=== PATIENT | male | born 1965 | race African-American/Black ===

== ENCOUNTER → 2017-01-30 | Day surgery (SDC) | payer BC, OTHER ==
[~2017-01-30] MED LIST: BACTRIM DS TABL1 TA2 PO; DICLOFENAC PO; LORTAB 5/500 TA1 TA1 PO; NO MEDICATIONS; NORFLEX100 M1 PO; TYLENOL #3 PO; VICODIN 5/1 TAB 5/50 PO; VOLTAREN75 MG PO; ZITHROMAX1 G/PKT PO
--- NOTE | ~2017-01-30 | OR ---
Unit #: [id number] #: [id number] Patient: PATRICIA WONG [id number] [address] [place], [place] [address] [id number] O MR#: [id number] NAME: PATRICIA WONG ROOM: Date of Procedure: 01/30/2017 Admission Date: 01/30/2017 Surgeon: Alex Platt Jr., M.D. : 1965 Attending Physician: Alex Platt Jr., M.D. Referring Physician: Alex Platt Jr., M.D. Primary Care Physician: Mohini King M.D. OPERATIVE REPORT INDICATION FOR PROCEDURE The patient is a 51-year-old black male, who recently presented to the office complaining of a nodular mass of the upper midline above the umbilicus. He has had a previous umbilical hernia. It was felt he had an incarcerated recurrent ventral incisional hernia. He is brought to the operating room at this time for laparoscopic repair of this. He understands the procedure including the risks, including that of intra-abdominal organ injury, bleeding, abscess formation, recurrence of the hernia and chronic pain, and consents. He also has several small condylomas of the penis that he wants removed and these will be removed at the end of the case. ANESTHESIA General with endotracheal intubation and 0.5% Marcaine with epinephrine locally. PROCEDURES PERFORMED Laparoscopic reduction and ventral hernia repair using a 6 x 8 inch Ventralight mesh along with SecureStrap and excision of 3 condylomas of the penis. DESCRIPTION OF PROCEDURE The patient was positioned in supine position. After being anesthetized and intubated, he was prepped and draped in routine fashion for laparoscopic ventral hernia repair and excision of his penile condylomas. A small 0.5 cm incision was made in the right lateral abdominal wall area and a 5-mm Optiview was introduced into the abdomen. The abdomen was then inflated with CO2 gas. Camera was introduced into the abdomen. There were multiple adhesions in the central portion of the omentum. No evidence of any bowel loops. An 11-mm port was placed in the right lower quadrant abdominal wall area and a 5-mm port in the left upper and left lower quadrant abdominal wall areas. Using the grasping clamp, the looser adhesions were pulled free. The rest were then taken down with the Endo Jean Claude using a current of 20. Bleeding was also controlled in several areas with 5 mm hemoclips. After the lesions were completely lysed, the falciform was taken down and there was an obvious hernia approximately 5 cm above the umbilical repair, which was repaired with mesh which appeared to be a Ventralex mesh. After the adhesions were checked, there was no evidence of any bleeding. The falciform was taken down up towards the liver with the Endo Jean Claude as well as the hook cautery. Some additional fatty tissue was taken down inferiorly and it was obvious that a 6 x 8 inch Ventralight mesh was indicated for coverage of this area. This was Unit #: [id number] #: [id number] Patient: PATRICIA WONG tacked in 4 corners with Vicryl sutures soaked in antibiotic solution, placed intra-abdominal and brought up against the anterior abdominal wall with excellent coverage of the other mesh as well as the defect using the Endo Close technique. The mesh was tacked in place with SecureStrap with excellent coverage of all area and the sutures holding it up were then lysed. The area was checked again for any bleeding. There was no evidence of any active bleeding. After noting no bleeding, the larger port was removed from the right lower quadrant abdominal wall area and using the neoClose technique, the fascia was reapproximated. The rest of the ports removed. There was no evidence of any bleeding from the port sites. CO2 had been expressed prior to removal of the ports. The port sites were injected with 0.5% Marcaine with epinephrine locally. The wounds were irrigated. After hemostasis achieved with Bovie cautery, the skin edges were approximated with stainless-steel skin clips and skin stapling device. Sterile dressings were applied externally. The 3 condylomas of the shaft of the penis on the foreskin were then removed with the Bovie cautery using the needle tip and a low current and after they were removed, the wounds were closed loosely with interrupted 3-0 chromic sutures. Ointment was applied externally. Estimated blood loss for the entire procedure less than 100 mL. The patient received less than 2000 mL crystalloid solution during the procedure. Sponges and instruments counts were correct x3. No drains used. No complications. The patient was taken to the recovery room with stable vital signs in satisfactory condition. Dictated by... Alex Platt Jr., M.D. JMB/ramy TD: 01/30/2017 22:45 JOB #: [id number] OPERATIVE REPORT Page 1 of 1 X Alex Platt MD X PROCEDURE OPERATIVE NOTE
== END | disposition home or self-care (01) ==
LOC: CSUR 05:29
DX: K43.9 Ventral hernia without obstruction or gangrene (principal); A63.0 Anogenital (venereal) warts; J44.9 Chronic obstructive pulmonary disease, unspecified; K21.9 Gastro-esophageal reflux disease without esophagitis; F17.210 Nicotine dependence, cigarettes, uncomplicated; Z90.89 Acquired absence of other organs; Z98.890 Other specified postprocedural states
CPT/HCPCS: 88305; C1787; J0131; J0330; J0690; J1650; J1885; J2250; J2270; J2405; J2710; J3010

== ENCOUNTER → 2017-05-09 | Day surgery (SDC) | payer BC, OTHER ==
--- NOTE | ~2017-05-09 | OR ---
Unit #: [id number] #: [id number] Patient: PATRICIA WONG [id number] [address] [place], [place] [address] [id number] O MR#: [id number] NAME: PATRICIA WONG ROOM: Date of Procedure: 05/09/2017 Admission Date: 05/09/2017 Surgeon: Alex Platt Jr., M.D. : 1965 Attending Physician: Alex Platt Jr., M.D. Referring Physician: Alex Platt Jr., M.D. Primary Care Physician: Primary Care Physician No OPERATIVE REPORT INDICATIONS FOR PROCEDURE The patient is a 51-year-old black male, who recently presented to the office complaining of some intermittent rectal bleeding as well as diarrhea and has known past history of colon polyps. Last colonoscopy was several years ago. It was felt he needed a followup colonoscopy to rule out recurrent polyps and to determine the source of his rectal bleeding and diarrhea. He understands the procedure including the risks, including that of perforation and bleeding, and consents. He has had his prep at home. PREOPERATIVE DIAGNOSES Past history of colon polyps; diarrhea; rectal bleeding, etiology? POSTOPERATIVE DIAGNOSES Several small polyps in the rectosigmoid area at 15 cm and extensive mckeon-diverticulosis without diverticulitis. ANESTHESIA MAC anesthesia. PROCEDURE PERFORMED Flexible colonoscopy to the cecum with biopsies of small polyps at 15 cm in the rectosigmoid area. DESCRIPTION OF PROCEDURE The patient was positioned in Danielle position with left side down. After being given MAC anesthesia, digital rectal examination was performed, which revealed no palpable masses or tenderness. No blood or stool within the rectal ampulla. The prostate was normal by palpation. The Olympus colonoscope was advanced through the anal canal up the rectum and retroflexed down to the area of the anorectal region. There was no evidence of any fissures. No significant internal hemorrhoids. The scope was then straightened and advanced up in the rectosigmoid. At approximately 15 cm, there were several tiny 1 mm or so polyps. Two of these were biopsied without bleeding and the tissue sent for pathology. The scope was then advanced up in the sigmoid and descending colon where there was extensive diverticulosis around the splenic flexure, the transverse colon, around the hepatic flexure, the ascending colon down to the area of cecum. The light from the tip of the scope could be seen transilluminating through right lower quadrant abdominal wall area. Multiple attempts of advancing the scope up the distal ileum were unsuccessful. The scope was slowly removed. There were no tumors or Unit #: [id number] #: [id number] Patient: WONG,PATRICIA polyps except for the ones described above. No cancer, no AVMs, no evidence any colitis or acute diverticulitis. There was mckeon-diverticulosis with extensive diverticulosis in the right colon. No evidence of any narrowing or obstruction of the colon. The scope was removed. The patient tolerated the procedure well and discharged in satisfactory condition. Dictated by... Alex Platt Jr., M.Mynor. MARIO/ramy TD: 05/10/2017 07:18 JOB #: [id number] OPERATIVE REPORT Page 1 of 1 X Alex Platt MD X PROCEDURE OPERATIVE NOTE
== END | disposition home or self-care (01) ==
LOC: COPS 11:11
DX: K63.5 Polyp of colon (principal); K57.30 Diverticulosis of large intestine without perforation or abscess without bleeding; K62.5 Hemorrhage of anus and rectum; R19.7 Diarrhea, unspecified; Z86.010 Personal history of colon polyps; K21.9 Gastro-esophageal reflux disease without esophagitis
CPT/HCPCS: 88305; J2250